=== PATIENT | male | born 1975 | race Asian ===

== ENCOUNTER 2024-09-14 12:05 | Outpatient (REF) | payer OTHER, SELFPAY ==
[2024-09-14 13:46] LABS: MANUAL DIFF FLAG NO
[2024-09-14 14:16] LABS: Hematocrit 47.5 % (42.0-52.0); Hemoglobin 15.9 g/dl (14.0-18.0); Imm Gran Abs Auto 0.01 X10*3/uL (0.00-0.03); Imm Gran Pct Auto 0.2 % (0.0-0.4); Lymphocytes Absolute Auto 2.0 X10*3/uL (1.2-4.9); Mean Corpuscular HGB Conc 33.5 g/dl (31.0-36.0); Mean Corpuscular Hemoglobin 28.7 pg (27.0-33.0); Mean Corpuscular Volume 85.7 fL (80.0-98.0); NRBC Abs Auto 0.000 X10*3/uL (0.0-0.012); NRBC Pct Auto 0.0 /100WBC (0.0-0.2); Platelet Count 237 X10*3/uL (160-400); Red Blood Count 5.54 X10*6/uL (4.60-5.80); White Blood Count 4.6 X10*3/uL (4.8-10.8)
[2024-09-14 14:53] LABS: Alanine Aminotransferase 53 U/L (0-40); Albumin Level 4.8 g/dL (3.5-5.0); Alkaline Phosphatase 94 U/L (39-117); Anion Gap 13 (12-20); Aspartate Amino Transferase 28 U/L (5-37); Blood Urea Nitrogen 10 mg/dL (9-16); Calcium 9.0 mg/dL (8.4-10.2); Carbon Dioxide 27 mmol/L (22-29); Chloride 106 mmol/L (96-108); Estimated Glomerular Filt Rate > 60; Lipase 22 U/L (8-78); Potassium 4.2 mmol/L (3.3-5.1); Sodium 142 mmol/L (135-145); Total Protein 7.7 g/dL (6.5-8.0)
[2024-09-14 14:58] LABS: Ferritin 62 ng/mL (20-250)
== END 2024-09-14 12:06 | disposition home or self-care (01) ==
LOC: HO.LAB 12:05
PROVIDERS: PCP Hospitalist; Visit Provider Internal Medicine Gastroenterology
DX: R10.13 Epigastric pain (principal); K75.81 Nonalcoholic steatohepatitis (NASH)
CPT/HCPCS: 36415; 80053; 82728; 83013; 83690; 84443; 85025; 86140; 99202

== ENCOUNTER 2024-09-14 12:05 | Outpatient (AMB) | payer OTHER, SELFPAY ==
--- NOTE | 2024-09-14 12:08 | A.OFFVIS_ITS ---
Vital Signs 09/14/24 12:30 Height 5 ft 8 in Weight 190 lb BMI 28.9 BP 101/59 L Blood Pressure Location Lt brachial Position Sitting Pulse 63 Pulse Oximetry (%) 98 Oxygen Delivery Method Room Air Intake Visit Reasons: C-scope Ok per Dr. Gibson Intake Note: Patient new consult for C-scope Patient cc: abdominal pain/bloating, gasses, GERD with burning sensation, denies any other GI issues. Day Habilitation Specialist Required: No Accompanied by: Spouse Allergies No Known Allergies Allergy (Verified 09/14/24 12:08) HPI HPI C-scope Ok per Dr. Gibson: Details: HPI 48 yr old m here for assessment He noted long standing hx of epigastric pain and discomfort, worse last few months pain can be 7/10 comes and goes he has bloating and gas he has satiety denies constipation and diarrhea he had colonoscopy 5 months ago and was normal ROS: Constitutional : No Weight loss, No Fever, No Chills ENT/Mouth : No sore throat, No Rhinorrhea Eyes: No Swelling, No Redness Cardiovascular : No Chest Pain, No SOB, No Edema Respiratory : No Cough, No Sputum, No Wheezing Gastrointestinal : see HPI Genitourinary : NO Dysuria, No Urinary Frequency, No Hematuria, No Urgency Musculoskeletal : + joint pain, No Myalgias, No Joint Swelling Skin : No Skin Lesions, No rash Neuro : No Weakness, No Numbness, No Dizziness, No Headache Psych : No Anxiety/Panic, No Depression Heme/Lymph: No Bruising, No Lymphadenopathy Endocrine : No Polyuria, No Polydipsia All other systems reviewed and are negative. Medical History none Surgical History colonoscopy Family History no Fh of cancer Social History ex hooka user, no alcohol, EXAM: GENERAL: The patient is well developed and nontoxic. VITAL SIGNS:see workflow HEENT: Nonicteric sclerae, PERRLA, EOMI. Oropharynx clear. Moist mucous membranes. Conjunctivae appear well perfused. No thyroid mass. CHEST: Chest wall is nontender. HEART: Regular rate and rhythm without murmurs. LUNGS: Clear to auscultation bilaterally. ABDOMEN: Soft, positive bowel sounds, tender epigastrium, no organomegaly.no flank tenderness SKIN: No rash, no excessive bruising, petechiae, or purpura. NEUROLOGIC: Cranial nerves II-XII intact without motor/sensory deficit. Psych: normal affect A/P: 1/ Epigastric pain satiety, from [place] PLAN: 1/ H pylori breath 2/ labs 3/ EGD [facility] Social History (Updated 09/14/24 @ 12:25 by Renetta Lee) Household Members: Family Alcohol intake: never Patient Tobacco Use Status: Never used Tobacco Use of substances other than those prescribed or required for medical reasons: No Physical Exam Vital Signs: Last Vital Signs Pulse 63 09/14/24 12:30 BP 101/59 L 09/14/24 12:30 Pulse Ox 98 09/14/24 12:30 Oxygen Delivery Method Room Air 09/14/24 12:30 BMI result Body Mass Index 28.9 Assessment & Plan Assessment & Plan (1) Epigastric abdominal pain: Code(s): R10.13 - Epigastric pain Category: Medical Plan: as above Orders: Orders Complete Blood Count Auto Diff Today R10.13 - Epigastric pain Comprehensive Met. Panel Today K75.81 - Nonalcoholic steatohepatitis (HDZ), R10.13 - Epigastric pain Lipase Today R10.13 - Epigastric pain TSH reflex Free T4 Today R10.13 - Epigastric pain Ferritin Today R10.13 - Epigastric pain C Reactive Protein Today R10.13 - Epigastric pain H Pylori Breath Test Today Coding Level of Care Code New Pt Level 4 (89517) Diagnoses Epigastric abdominal pain R10.13
[2024-09-14 12:30] VITALS: BP 101/59; PULSE 63; O2SAT 98; BMI 28.9
--- OUTSIDE RECORDS SUMMARY | 2024-09-14 13:00 | XMS_ITS | Clinical Summary ---
Author Organization [facility] Address [address] [place] [address] Phone Care Team Providers Care Tread Booker Name Role Phone Magnus Velásquez MD Primary Care Provider Allergies No known active allergies Social History Tobacco Use Types Packs/Day Years Used Date Smoking Tobacco: Never Assessed Sex and Gender Information Value Date Recorded Sex Assigned at Male 06/02/2024 10:14 PM EDT Legal Sex Male 1:32 PM EDT Gender Identity Male 06/02/2024 10:14 PM EDT Sexual Orientation Straight 06/02/2024 10 :14 PM EDT Last Filed Vital Signs Vital Sign Reading Time Taken Comments Blood Pressure 103/56 06/03/2024 12:15 AM EDT Pulse 73 06/03/2024 12:15 AM EDT Temperature 36.6 C (97.9 F) 06/03/2024 12:15 AM EDT Respiratory Rate 18 06/03/2024 12:15 AM EDT Oxygen Saturation 95% 06/03/2024 12:15 AM EDT Inhaled Oxygen Concentration - - Weight 81.6 kg (180 lb) 06/02/2024 8:05 PM EDT Height 172.7 cm (5' 8 ) 06/02/2024 8:05 PM EDT Body Mass Index 27.37 06/02/2024 8:05 PM EDT Plan of Treatment Health Maintenance Due Date Last Done Comments DTaP,Tdap,and Td Vaccines (1 - Tdap) 1992 Hepatitis B Vaccines (1 of 3 - 19+ 3-dose series) 1992 Cholesterol Screening (Lipid Panel) 09/27/2023 Colorectal Cancer Screening: Colonoscopy 09/27/2023 HIV Screening 09/27/2023 Hepatitis C Screening 09/27/2023 Social Influencers of Health Screening 09/27/2023 COVID-19 Vaccine (3 - 2023-2 5 season) 2023 11/17/2020, 10/27/2020 Pneumococcal Vaccine: 50+ Years (1 of 1 - PCV) 12/03/2023 Zoster Vaccines (1 of 2) 12/03/2023 Depression Screening 02/26/2024 Influenza Vaccine (#1) 2024 HIB Vaccines Aged Out No longer eligi ble based on patient's age to complete this topic HPV Vaccines Aged Out No longer eligi ble based on patient's age to complete this topic Hepatitis A Vaccines Aged Out No long er eligible based on patient's age to complete this topic IPV Vaccines Aged Out No longer eligi ble based on patient's age to complete this topic MMR Vaccines Aged Out No longer eligi ble based on patient's age to complete this topic Meningococcal ACWY Vaccine Aged Out N o longer eligible based on patient's age to complete this topic Meningococcal B Vaccine Aged Out No l onger eligible based on patient's age to complete this topic RSV Immunization Patients Under 20 months Aged Out No longer eligible b ased on patient's age to complete this topic Varicella Vaccines Aged Out No longer eligible based on patient's age to complete this topic Insurance [facility] PLAN Care Teams Tread Booker Relationship Specialty Start Date End Date Magnus Velásquez MD [address] [place] [address] PCP - General Internal Medicine 06/02/24
--- OUTSIDE RECORDS SUMMARY | 2024-09-14 13:01 | XMS_ITS | Clinical Summary ---
Author Organization [facility] Address [address] [place] [address] Care Team Providers Care Sheet Rock Applier Name Role Phone Isabel Martin Primary Care Provider [phone] Source Comments PLEASE NOTE, if this patient is a minor, it may be UNLAWFUL to discuss sensitive information that is contained in these records (such as FAMILY PLANNING, MENTAL HEALTH or SUBSTANCE ABUSE) with the minor patient's parent or other person without the patient's specific authorization.[facility] Social History Tobacco Use Types Packs/Day Years Used Date Smoking Tobacco: Never Assessed Social Connections Answer Date Recorded Social Connections and Isolation 0 10/18/2018 Financial Resource Strain Answer Date R ecorded Financial Resource Strain 0 2018 Stress Answer Date Recorded Stress 0 10/18/2018 Physical Activity Answer Date Recorded Physical Activity 0 10/18/2018 Food Insecurity Answer Date Recorded Food 0 10/18/2018 Transportation Needs Answer Date Record ed Transportation 0 10/18/2018 Housing Stability Answer Date Recorded Housing 0 10/18/2018 Safety and Environment Answer Date Gurinder rded Safety 0 10/18/2018 Utilities Answer Date Recorded Utilities 0 10/18/2018 Employment Answer Date Recorded Employment 0 10/18/2018 Sex and Gender Information Value Date Recorded Sex Assigned at Not on file Legal Sex Male 11:36 AM PDT Gender Identity Not on file Sexual Orientation Not on file Last Filed Vital Signs Vital Sign Reading Time Taken Comments Blood Pressure 116/58 11/17/2013 2:32 PM EDT Pulse 68 11/17/2013 2:32 PM EDT Temperature 37 C (98.6 F) 11/17/2013 2:32 PM EDT Respiratory Rate 20 11/17/2013 2:32 PM EDT Oxygen Saturation - - Inhaled Oxygen Concentration - - Weight 76.2 kg (168 lb) 11/17/2013 2:32 PM EDT Height 170.2 cm (5' 7 ) 11/17/2013 2:32 PM EDT Body Mass Index 26.31 11/17/2013 2:32 PM EDT Plan of Treatment Not on file Insurance [facility] [place] [address] [address] [place] [address] HEALTH PLAN Member Subscriber Plan / Payer (Ef fective 2013-Present) Name:Catarino Iqbal Relation to Subscriber:Self Name:Catarino Iqbal Payer ID:[id number] Group ID:[id number] Type:Medicaid Address: [address] [address] [place] [address] Care Teams Sheet Rock Applier Relationship Specialty Start Date End Date Isabel Martin PA [address] [place] [address] PCP - General Internal Medicine 11/17/13
--- OUTSIDE RECORDS SUMMARY | 2024-09-14 13:01 | XMS_ITS | Patient Health Record ---
Author Organization [facility] Address [address] [place] [address] Care Team Providers Care Top Stop Attacher Name Role Phone ELLIE PONCE Primary Care Provider Leah Rowland Unavailable [phone] Allergies No Known Allergies Results Component Value Reference Range Notes PSA (Serial Monitor)-[id number] Reviewed date:07/21/2024 11:40:51 AM Interpretation: Performing Lab:[facility], [address] [facility], Phone - [phone], Director - MDJodry Notes/Report: Prostate Specific Ag 2.0 0.0-4.0 ng/mL Saad ECLIA methodology. . According to the [employer], Serum PSA should decrease and remain at undetectable levels after radical prostatectomy. The AUA defines biochemical recurrence as an initial PSA value 0.2 ng/mL or greater followed by a subsequent confirmatory PSA value 0.2 ng/mL or greater. Values obtained with different assay methods or kits cannot be used interchangeably. Results cannot be interpreted as absolute evidence of the presence or absence of malignant disease. Comp. Metabolic Panel ([id number] Reviewed date:07/21/2024 11:41:53 AM Interpretation: Performing Lab:[facility], [address], [place], Phone - [phone], Director - MDJodry Notes/Report: Glucose 87 70-99 mg/dL BUN 11 6-24 mg/dL Creatinine 0.89 0.76-1.27 mg/dL eGFR 104 >59 mL/min/1.73 BUN/Creatinine Ratio 12 9-20 Sodium 140 134-144 mmol/L Potassium 4.6 3.5-5.2 mmol/L Chloride 102 96-106 mmol/L Carbon Dioxide, Total 21 20-29 mmol/L Calcium 9.3 8.7-10.2 mg/dL Protein, Total 7.1 6.0-8.5 g/dL Albumin 4.4 4.1-5.1 g/dL Globulin, Total 2.7 1.5-4.5 g/dL Bilirubin, Total 0.4 0.0-1.2 mg/dL Alkaline Phosphatase 107 44-121 IU/L AST (SGOT) 29 0-40 IU/L ALT (SGPT) 50 0-44 IU/L Lipid Panel-[id number] Reviewed date:07/21/2024 11:42:18 AM Interpretation: Performing Lab:[facility] [place], [address] [place] [address], Phone - [phone], Director - MDJodry Notes/Report: Cholesterol, Total 245 100-199 mg/dL Triglycerides 219 0-149 mg/dL HDL Cholesterol 37 >39 mg/dL VLDL Cholesterol Serjio 41 5-40 mg/dL LDL Chol Calc (NIH) 167 0-99 mg/dL TSH+Free [id number] Reviewed date:07/21/2024 11:42:34 AM Interpretation: Performing Lab:[facility] [place], [address] [place] [address], Phone - [phone], Director - MDJodry Notes/Report: TSH 2.810 0.450-4.500 uIU/mL T4,Free(Direct) 1.01 0.82-1.77 ng/dL Vitamin D, 54-[id number] Reviewed date:07/21/2024 11:43:00 AM Interpretation: Performing Lab:[facility] [place], [address] [place] [address], Phone - [phone], Director - MDJodry Notes/Report: Vitamin D, 25-Hydroxy 14.4 30.0-100.0 ng/mL intakes for calcium and D. [place]: The National Academies Press. 2. Alexandrea MF, Hemant NC, Gilberto CUELLAR, et al. Evaluation, treatment, and prevention of vitamin D deficiency: an Endocrine Society clinical practice guideline. JCEM. 2010; 96(7):1911-30. Vitamin D deficiency has been defined by the [place] [employer] and an Endocrine Society practice guideline as a level of serum 25-OH vitamin D less than 20 ng/mL (1,2). The Endocrine Society went on to further define vitamin D insufficiency as a level between 21 and 29 ng/mL (2). 1. IOM ([place] of [employer]). 2010. Dietary reference CBC with Diff, Platelet, NLR -[id number] Reviewed date:07/21/2024 11:41:35 AM Interpretation: Performing Lab:[facility] [place], [address], [place], Phone - [phone], Director - Sameer Notes/Report: WBC 5.0 3.4-10.8 x10E3/uL RBC 5.68 4.14-5.80 x10E6/uL Hemoglobin 16.5 13.0-17.7 g/dL Hematocrit 49.2 37.5-51.0 % MCV 87 79-97 fL MCH 29.0 26.6-33.0 pg MCHC 33.5 31.5-35.7 g/dL RDW 12.7 11.6-15.4 % Platelets 276 150-450 x10E3/uL Neutrophils 46 Not Estab. % Lymphs 43 Not Estab. % Monocytes 7 Not Estab. % Eos 3 Not Estab. % Basos 1 Not Estab. % Neutrophils (Absolute) 2.3 1.4-7.0 x10E3/uL Lymphs (Absolute) 2.1 0.7-3.1 x10E3/uL Neut/Lymph Ratio 1.1 0.0-2.9 ratio Published COVID-19 studies suggest: Low likelihood of severe COVID-19 disease progression 0.0-2.9 High likelihood of severe COVID-19 disease progression >4.9 Monocytes(Absolute) 0.4 0.1-0.9 x10E3/uL Eos (Absolute) 0.2 0.0-0.4 x10E3/uL Baso (Absolute) 0.1 0.0-0.2 x10E3/uL Immature Granulocytes 0 Not Estab. % Immature Grans (Abs) 0.0 0.0-0.1 x10E3/uL Reason For Referral Reason C-scope- Mel. Dr Lloyd Hawthorne Please evaluate and treat Diagnosis 1 Encounter for screen ing for malignant neoplasm of colon (Z12.11) Referral Organization [facility] Referring Provider First Name Leah Referring Provider Last Name Janett Referred Provider Specialty Gastroentero logy General Notes Please call the siri ent to schedule the appointment, [place] ([facility]) Gastroenterology - [phone] Marcy 06/17/2024 03:59:00 PM > Referral Priority Routine Reason Currently on prednis one taper, no previous dx. Dr. Arthur Hawthorne- Mel Please evaluate and treat Diagnosis 1 Panniculitis, unspec ified (M79.3) Referral Organization [facility] Referring Provider First Name Leah Referring Provider Last Name Janett Referred Provider Specialty Gastroentero logy General Notes Please call the siri ent to schedule the appointment, [place] ([facility]) Gastroenterology - [phone] Marcy 06/17/2024 03:58:01 PM > Referral Priority Routine Reason Evaluation and manag ement White small scattered patches localized in the buccal mucosa BL needs Biopsy- Mel Diagnosis 1 Granulomatous disord er of the skin and subcutaneous tissue, unspecified (L92.9) Referral Organization [facility] Referring Provider First Name Leah Referring Provider Last Name Janett Referred Provider Specialty Oral Surgery General Notes Referral sent to [facility] ([address] [place] [address], [phone]) - Office will call patient for scheduling. 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, please contact patient for scheduling.Gail Rashida 07/28/2024 04:58:26 PM > Referral Priority Routine Medications Medication SIG (Take, Route, Frequency, Duration) Notes Start Date End Date Status predniSONE 10 MG 1 tablet with food o r milk Orally Once a day Active Vitamin D (Ergocalciferol) 1.25 MG (28964 UT) 1 capsule Orally once a week; Duration: 90 days 07/14/2024 Active Ezetimibe 10 MG 1 tablet Orally Once a day; Duration: 30 days 07/14/2024 Active Immunizations Vaccine Route Administration Date Status Comme nts COVID Unknown 10/27/2020 Administered 1st pfizer COVID Unknown 11/17/2020 Administered 2nd pfizer Social History Tobacco Use: Social History Observation Description Date Details (start date - stop date) Unknown Tobacco Use/Smoking Question Answer Notes Are you a Uses tobacco in other forms Additional Findings: Tobacco User User of moist powdered tobacco Alcohol Screen (Audit-C) Question Answer Notes Did you have a drink containing alcohol in the p ast year? 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 Problem Vitamin D deficiency (22643772) Vitamin D deficiency (E55.9) Active confirmed Vital Signs Heart Rate 72 /min 06/16/2024 Temperature 97.6 degrees Fahrenheit 06/16/2024 Oximetry 97 % 06/16/2024 Blood pressure diastolic 70 mm Hg 06/16/2024 Height 5'8'' in 06/16/2024 Blood pressure systolic 112 mm Hg 06/16/2024 Weight 189.2 lbs 06/16/2024 BMI 28.76 kg/m2 06/16/2024 Encounters Encounter Location Date Provider Diagnosis [address] [place] [address] 01/01/[address] [place] [address] 06/16/2024 Leah Rowland Encounter for genera l adult medical examination without abnormal findings Z00.00 ; Encounter for screening for cardiovascular disorders Z13.6 ; Panniculitis, unspecified M79.3 ; Granulomatous disorder of the skin and subcutaneous tissue, unspecified L92.9 ; Encounter for screening for malignant neoplasm of prostate Z12.5 and Encounter for screening for malignant neoplasm of colon Z12.[address] [place] [address] 06/17/[address] [place] [address] 06/22/[address] [place] [address] 07/14/2024 Leah Rowland Hyperlipidemia, mixe d E78.[address] [place] [address] 07/14/2024 Leah [facility] Vitamin D deficiency E55.[address] [place] [address] 07/23/[address] [place] [address] 07/28/[address] [place] [address] 07/29/[address] [place] [address] 07/30/[address] [place] [address] 07/30/2024 ELLIE RAINEY Assessments Encounter Date Diagnosis (ICD Code) Assessment Notes Treatment Notes Treatment Clinical Notes Section Notes 06/16/2024 Encounter for general adult medical examination without abnormal findings (ICD-10 - Z00.00) Mr. Iqbal is a 47 year old gentleman with no significant past medical history here for annual physical. Plan is as follows: Screening for cardiovascular disorder. 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 Refer patient to GI specialist Unspecified lesions in the buccal mucosa bilateral. He does have history of smoking hookah. Referred patient to oral surgery for biopsy to rule out any abnormalities Eye screening. He sees his casting coordinator regularly. Dental screening. He sees dentist regularly. Colon cancer screening. Referred to GI for colonoscopy Screening for prostate cancer. Order PSA. Immunizations. He is up-to-date on his COVID vaccinations. MOLST form and HCP provided Screening blood work before next appointment. General concerns have been discussed I have rendered the services for this patient under direct supervision of Dr. Ponce, who did not see the patient but was available upon request 06/16/2024 Encounter for screening for cardiovascular disorders (ICD-10 - Z13.6) Mr. Iqbal is a 47 year old gentleman with no significant past medical history here for annual physical. Plan is as follows: Screening for cardiovascular disorder. 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 Refer patient to GI specialist Unspecified lesions in the buccal mucosa bilateral. He does have history of smoking hookah. Referred patient to oral surgery for biopsy to rule out any abnormalities Eye screening. He sees his casting coordinator regularly. Dental screening. He sees dentist regularly. Colon cancer screening. Referred to GI for colonoscopy Screening for prostate cancer. Order PSA. Immunizations. He is up-to-date on his COVID vaccinations. MOLST form and HCP provided Screening blood work before next appointment. General concerns have been discussed I have rendered the services for this patient under direct supervision of Dr. Ponce, who did not see the patient but was available upon request 07/14/2024 Hyperlipidemia, mixed (ICD-10 - E78.2) 07/14/2024 Vitamin D deficiency (ICD-10 - E55.9) 06/16/2024 Panniculitis, unspecified (ICD-10 - M79.3) Mr. Iqbal is a 47 year old gentleman with no significant past medical history here for annual physical. Plan is as follows: Screening for cardiovascular disorder. 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 Refer patient to GI specialist Unspecified lesions in the buccal mucosa bilateral. He does have history of smoking hookah. Referred patient to oral surgery for biopsy to rule out any abnormalities Eye screening. He sees his casting coordinator regularly. Dental screening. He sees dentist regularly. Colon cancer screening. Referred to GI for colonoscopy Screening for prostate cancer. Order PSA. Immunizations. He is up-to-date on his COVID vaccinations. MOLST form and HCP provided Screening blood work before next appointment. General concerns have been discussed I have rendered the services for this patient under direct supervision of Dr. Ponce, who did not see the patient but was available upon request 06/16/2024 Granulomatous disorder of the skin and subcutaneous tissue, unspecified (ICD-10 - L92.9) Mr. Iqbal is a 47 year old gentleman with no significant past medical history here for annual physical. Plan is as follows: Screening for cardiovascular disorder. 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 Refer patient to GI specialist Unspecified lesions in the buccal mucosa bilateral. He does have history of smoking hookah. Referred patient to oral surgery for biopsy to rule out any abnormalities Eye screening. He sees his casting coordinator regularly. Dental screening. He sees dentist regularly. Colon cancer screening. Referred to GI for colonoscopy Screening for prostate cancer. Order PSA. Immunizations. He is up-to-date on his COVID vaccinations. MOLST form and HCP provided Screening blood work before next appointment. General concerns have been discussed I have rendered the services for this patient under direct supervision of Dr. Ponce, who did not see the patient but was available upon request 06/16/2024 Encounter for screening for malignant neoplasm of prostate (ICD-10 - Z12.5) Mr. Iqbal is a 47 year old gentleman with no significant past medical history here for annual physical. Plan is as follows: Screening for cardiovascular disorder. 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 Refer patient to GI specialist Unspecified lesions in the buccal mucosa bilateral. He does have history of smoking hookah. Referred patient to oral surgery for biopsy to rule out any abnormalities Eye screening. He sees his casting coordinator regularly. Dental screening. He sees dentist regularly. Colon cancer screening. Referred to GI for colonoscopy Screening for prostate cancer. Order PSA. Immunizations. He is up-to-date on his COVID vaccinations. MOLST form and HCP provided Screening blood work before next appointment. General concerns have been discussed I have rendered the services for this patient under direct supervision of Dr. Ponce, who did not see the patient but was available upon request 06/16/2024 Encounter for screening for malignant neoplasm of colon (ICD-10 - Z12.11) Mr. Iqbal is a 47 year old gentleman with no significant past medical history here for annual physical. Plan is as follows: Screening for cardiovascular disorder. 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 Refer patient to GI specialist Unspecified lesions in the buccal mucosa bilateral. He does have history of smoking hookah. Referred patient to oral surgery for biopsy to rule out any abnormalities Eye screening. He sees his casting coordinator regularly. Dental screening. He sees dentist regularly. Colon cancer screening. Referred to GI for colonoscopy Screening for prostate cancer. Order PSA. Immunizations. He is up-to-date on his COVID vaccinations. MOLST form and HCP provided Screening blood work before next appointment. General concerns have been discussed I have rendered the services for this patient under direct supervision of Dr. Ponce, who did not see the patient but was available upon request Plan Of Treatment Future Test Test Name Order Date Lipid Panel-[id number] 07/14/2024 Next Appt Details Provider Name:ELLIE PONCE , 06/22/2025 03:00:00 PM, [address] [place] [address], [phone], Insurance Providers Payer Name Payer Address Payer Phone Subscriber Number Group Number Insured Name Patient Relationship to Insured Coverage Start Date Coverage End Date [facility] Plan I [address] [address] [place] [address] [id number] SHERMAN IQBAL Self - patient is the insured Medical (General) History Medical History History ICD Code Mesenteric panniculitis
--- OUTSIDE RECORDS SUMMARY | 2024-09-14 13:01 | XMS_ITS | Data Portability ---
Author Organization [facility], [address] Address [address] [place] [address] Assessment No assessment recorded. Plan of Treatment Reminders Order Date Submit Date Provider Last Modified By Organization Details Last Modified Time Details Appointments None record ed. Lab None record ed. Referral None record ed. Procedures None record ed. Surgeries None record ed. Imaging None record ed. Medication Orders None record ed. Patient TargetsNo targets recorded. Patient InstructionsNo instructions recorded. Reason for Referral None Reported. Procedures Surgical History Date Name Laterality Status Provider Name and Address Organization Details Recorded Time OC-UDS Send Out Template DOT completed [facility] 05/09/2022 13:26:32 Imaging Results None recorded. Procedure Notes None recorded. Medical Equipment None Reported. Vitals None Recorded Social History None recorded. Functional Status None recorded. Mental Status None recorded. Family History Nothing Reported. Medical History No medical history recorded. Past Encounters Encounter ID Performer Location Encounter Start Date Encounter Closed Date Diagnosis/Indication Diagnosis SNOMED-CT Code Diagnosis ICD10 Code Diagnosis Note [id number] [facility] [address] [place] [phone] 04/25/2018 12:56:07 04/25/2018 13:28:20 [id number] [place] [address] 03/13/2021 08:59:45 03/13/2021 10:58:39 [id number] Radha Pratt MD [facility] [address] [place] [phone] 05/09/2022 12:29:23 05/09/2022 13:37:54 History and physical examination, occupation [id number] Z02.1 Health Concerns Section Related Observation LastModified by Organization Detai ls LastModified Time None Recorded Concern Status LastModified by Organization Details LastModified Time None Recorded Advance Directives Directive None Recorded Payers Insurance Date Sequence Insurance Name Policy Number Policy Guerrero Covered Member ID Guerrero Member ID Guarantor Name 05/09/2022 OC-ESCREEN Catarino Iqbal [id number] Catarino Iqbal 05/09/2022 1 [facility] [employer] - HEALTH NET PLAN (MEDICAID HMO) [id number] Catarino Iqbal [id number] Catarino Iqbal
== END 2024-09-14 13:11 | disposition home or self-care (01) ==
LOC: HO.HGI 12:06
PROVIDERS: PCP Hospitalist; Visit Provider Internal Medicine Gastroenterology
DX: R10.13 Epigastric pain (principal)
CPT/HCPCS: 99204

== ENCOUNTER 2024-09-16 12:02 | Day surgery (SDC) | payer OTHER, SELFPAY ==
[2024-09-16 12:32] VITALS: BP 123/77; PULSE 85; RESP 12; TEMP 36.9; O2SAT 95; BMI 28.8
[2024-09-16] MEDS: Lactated Ringers 1,000 ML 100 ML IVCONT (12:35)
--- NOTE | 2024-09-16 12:51 | HO.ANESPROP2 ---
FORM[facility]LY [facility] Active Problems Active Problems: All Active Problems Epigastric abdominal pain (Acute) Past Medical History Medical History (Updated 09/15/24 @ 14:17 by Jayla Sinha, RN) Elevated cholesterol Family History Family history of problems with anesthesia: No Surgical History Surgical History (Updated 09/15/24 @ 14:15 by Jayla Sinha RN) Hx of colonoscopy History of Problems with Anesthesia: No Social History Social History (Updated 09/14/24 @ 12:25 by Renetta Lee) Household Members: Family Are you a primary clinical manager home care to a significant other at home: No Do you presently have visiting nurse or other home services: No Alcohol intake: never Patient Tobacco Use Status: Former Tobacco user Use of substances other than those prescribed or required for medical reasons: No Have you been hit, kicked, punched, or otherwise hurt by someone within the past year? If so, by whom?: No Are you DNR?: No Advance Directives: No Advance Directives Information Provided: Yes Poor oral hygiene: Yes Meds Allergies Allergy/AdvReac Type Severity Reaction Status Date / Time No Known Allergies Allergy Verified 09/14/24 12:08 Active Medications: Current Medications Lactated Ringer's (Lr) 1,000 mls @ 100 mls/hr IVCONT .Q10H BERRY Last Admin: 09/16/24 12:35 Dose: 100 mls/hr Naloxone HCl (Naloxone Hcl 0.4 Mg/Ml Vial) 0.04 mg IVPUSH Q5M PRN PRN Reason: Excessive sedation or RR < 8 Home Medications ?Medication ?Instructions ?Recorded ?Confirmed ?Last Taken ?Type ergocalciferol (vitamin D2) 1,250 1,250 mcg PO QWEEK 09/14/24 Unknown History mcg (50,000 unit) capsule ezetimibe 10 mg tablet 10 mg PO DAILY 09/14/24 Unknown History Exam Height,Weight and Vital Signs: Height 5 ft 8 in Weight 86 kg Last Vital Signs Temp 98.5 F 09/16/24 12:32 Pulse 85 09/16/24 12:32 Resp 12 09/16/24 12:32 BP 123/77 09/16/24 12:32 Pulse Ox 95 09/16/24 12:32 O2 Del Method Room Air 09/16/24 12:32 Airway Mallampati Class: III TM Dist: >3cm Neck ROM: Full Heart: rrr Lungs: cta Assessment and Plan Assessment Anesthesia Assessment: Anesthesia Plan Discussed and Chart Reviewed Final Anesthetic Review Family History of Problems with Anesthesia: No History of Problems with Anesthesia: No NPO: Yes ASA Class: II Final Preanesthetic Review: No Changes in Pt Med Stat, Meds/Allgs Chart Reviewed and Consent Obtained/Reviewed Patient Risk: Low Procedure Risk: Intermediate Anesthetic Plan Anesthetic Plan: MAC: Disposition: Standard PACU
--- NOTE | 2024-09-16 13:16 | P.HPSUR_ITS ---
Pre-Procedural Eval Section A - 24 Hr Update-Section A only Date of Service: 09/16/24 Section B - Complete if H&P > 30 days Chief Complaint: Epigastric pain Relevant Family History (Specify if Yes): No Relevant Social History: None Present Medications: see Short Stay Collaborative assessment Medical History: Significant History (high chol) History of Previous Operations: Relevant previous surgery/procedure and date(s) (colonsocopy) Allergies: Allergies Allergy/AdvReac Type Severity Reaction Status Date / Time No Known Allergies Allergy Verified 09/14/24 12:08 Review of Systems Sugical H&P ROS: Negative: Constitution, Cardiovascular, Respiratory, Neuro logical, Psychiatric, Hem-Onc, Allergic/Immunologic, Gastrointestinal, Genitourinary, Musculoskeletal, Integumentary, Endocrine and Eyes/Ears/Nose/Throat Exam Surgical H&P Exam: Normal: HEENT, Normal: Heart, Normal: Lungs, Normal: Extremities, Normal: Abdomen, Normal: Skin and Normal: Neurological Plan Diagnosis/Plan: Unchanged I have reviewed the history and physical and performed a pertinent physical examination on my patient. No changes have occurred unless specified. Time Spent With Patient Time: Total time managing care of this patient today ____ minutes.
--- NOTE | 2024-09-16 13:37 | W.PM.OPN ---
Operative Note Operative Note Date of Service: 09/16/24 Narrative: Procedure Description: EGD Indication: epigastric pain Anesthesia: MAC FLEXIBLE TRANSORAL UPPER GASTROINTESTINAL ENDOSCOPY UPPER ENDOSCOPY Consent: Indications for the procedure and potential complications of bleeding, perforation, reaction to medications and missed diagnosis were discussed with the patient and informed consent was obtained. Instrument: Olympus GIF H 190 J mid size upper endoscope Monitoring: Vital signs and clinical assessment, continuous EKG monitoring, Pulse oximetry, Carbon Dioxide monitoring and blood pressure monitoring were done throughout the procedure. Procedure: The patient was placed in the left lateral decubitis position and pre-procedure medications were administered and a bite block was placed. The endoscope was inserted into the mouth and advanced under direct vision to the third part of duodenum. A careful inspection was made as the upper endoscope was withdrawn including a retroflexed examination of the proximal stomach; Findings and interventions are described below. Findings: Larynx:normal Esophagus: GE junction at 40 cm, diaphragm hiatus at 40 cm, irregular Z line, possible barretts, bx taken Stomach: patchy gastritis . Biopsies were obtained. Grade 2 flap valve on retroflexed examination of the cardia. Duodenum: moderate bulbar duodenitis Intervention: Biopsies as noted above, Impression/Findings: gastritis duodenitis possible barretts PLAN: await bx - if h pylori pos then treat GERD precautions
[2024-09-16 13:43] VITALS: BP 98/61; PULSE 89; RESP 16; TEMP 36.3; O2SAT 95
[2024-09-16 13:58] VITALS: BP 113/77; PULSE 69; RESP 16; TEMP 37.1; O2SAT 97
== END 2024-09-16 15:09 | disposition home or self-care (01) ==
PROVIDERS: PCP Hospitalist; Visit Provider Internal Medicine Gastroenterology
PROC: 0DJ08ZZ Inspection of Upper Intestinal Tract, Via Natural or Artificial Opening Endoscopic (ICD-10-PCS; CPT 43235; principal; 2024-09-16 14:00)
DX: R10.13 Epigastric pain (principal); R68.81 Early satiety; K29.80 Duodenitis without bleeding; K29.50 Unspecified chronic gastritis without bleeding; B96.81 Helicobacter pylori [H. pylori] as the cause of diseases classified elsewhere; K22.89 Other specified disease of esophagus; K75.81 Nonalcoholic steatohepatitis (NASH); K44.9 Diaphragmatic hernia without obstruction or gangrene; K21.9 Gastro-esophageal reflux disease without esophagitis
CPT/HCPCS: 43239; 88305; 88313; 88342; J2003; J2704

== ENCOUNTER → 2024-09-16 12:02 | Outpatient (BNV) | payer OTHER, SELFPAY | PROVIDERS: PCP Hospitalist; Visit Provider Internal Medicine Gastroenterology | DX: R10.13 Epigastric pain (principal); K29.70 Gastritis, unspecified, without bleeding; K29.80 Duodenitis without bleeding | CPT/HCPCS: 43239 ==

== ENCOUNTER 2024-11-06 15:12 | Outpatient (AMB) | payer OTHER, SELFPAY ==
--- NOTE | 2024-11-06 15:44 | AM.OFFVISNUR ---
Intake Visit Reasons: h pylori Intake Note: Pt presents for H Pylori BT. Protocols reviewed with pt and confirmed to be followed. Pt advised of instructions for the test and began testing at 1550. Testing was concluded at 1605. No questions or additional concerns per pt at the end of testing. Advised pt that we will contact them with results when they are obtained. Feed Mixer Required: No Accompanied by: Self / Same As Patient Allergies No Known Allergies Allergy (Verified 09/14/24 12:08) Assessment & Plan Assessment & Plan (1) Epigastric abdominal pain: Code(s): R10.13 - Epigastric pain Category: Medical Coding Level of Care Code Established Pt Procedure Only Patient Type Established Diagnoses Epigastric abdominal pain R10.13
--- OUTSIDE RECORDS SUMMARY | 2024-11-06 17:37 | XMS_ITS | Patient Health Record ---
Author Organization [facility] Address [address] [place] [address] Care Team Providers Care Consulting Psychiatrist Name Role Phone ELLIE PONCE Primary Care Provider Leah Rowland Unavailable [phone] Allergies No Known Allergies Results Component Value Reference Range Notes CBC with Diff, Platelet, NLR -[id number] Reviewed date:07/21/2024 11:41:35 AM Interpretation: Performing Lab:[facility], [address] [place] [address], [place], Phone - [phone], Director - Sameer Notes/Report: WBC 5.0 3.4-10.8 [...] % Immature Grans (Abs) 0.0 0.0-0.1 x10E3/uL Vitamin D, 46-Czratyp-[id number] Reviewed date:07/21/2024 11:43:00 AM Interpretation: Performing Lab:[facility] [place], [address] [place] [address], Phone - [phone], Director - MDJodry Notes/Report: Vitamin D, 25-Hydroxy 14.4 30.0-100.0 ng/mL intakes for calcium and D. [place]: The National Academies Press. 2. Alexandrea MF, Hemant GIFFORD, Gilberto CUELLAR, et al. Evaluation, treatment, and prevention of vitamin D deficiency: an Endocrine Society clinical practice guideline. JCEM. 2010; 96(7):1911-30. Vitamin D deficiency has been defined by the [place] of Medicine and an Endocrine Society practice guideline as a level of serum 25-OH vitamin D less than 20 ng/mL (1,2). The Endocrine Society went on to further define vitamin D insufficiency as a level between 21 and 29 ng/mL (2). 1. IOM ([place] of Medicine). 2010. Dietary reference TSH+Free [id number] Reviewed date:07/21/2024 11:42:34 AM Interpretation: Performing Lab:[facility] [place], [address] [place] [address], Phone - [phone], Director - Sirenay Notes/Report: TSH 2.810 0.450-4.500 uIU/mL T4,Free(Direct) 1.01 0.82-1.77 ng/dL Lipid Panel-[id number] Reviewed date:07/21/2024 11:42:18 AM Interpretation: Performing Lab:[facility] [place], [address] [place] [address], Phone - [phone], Director - Sirenay Notes/Report: Cholesterol, Total 245 100-199 mg/dL Triglycerides 219 0-149 mg/dL HDL Cholesterol 37 >39 mg/dL VLDL Cholesterol Serjio 41 5-40 mg/dL LDL Chol Calc ([facility]) 167 0-99 mg/dL Comp. Metabolic Panel (14)-3 Reviewed date:07/21/2024 11:41:53 AM Interpretation: Performing Lab:[facility], [address], [place], Phone - [phone], Director - Sameer Notes/Report: Glucose 87 70-99 mg/dL BUN 11 [...] 0-40 IU/L ALT (SGPT) 50 0-44 IU/L PSA (Serial Monitor)-[id number] Reviewed date:07/21/2024 11:40:51 AM Interpretation: Performing Lab:[facility], [address] [facility], [place], Phone - [phone], Director - Sameer Notes/Report: Prostate Specific Ag 2.0 0.0-4.0 ng/mL Saad ECLIA methodology. . According to the [place] [employer], Serum PSA should decrease and [...] the presence or absence of malignant disease. Reason For Referral Reason C-scope- Mel. Dr Lloyd Hawthorne Please evaluate and treat Diagnosis 1 Encounter for screen ing for malignant neoplasm of colon (Z12.11) Referral Organization [facility] Referring Provider First Name Leah Referring Provider Last Name Janett Referred Provider Specialty Gastroentero logy General Notes Please call the siri ent to schedule the appointment, [place] [place] - [phone] Marcy 06/17/2024 03:59:00 PM > Referral Priority Routine Reason Currently on prednis one taper, no previous dx. Dr. Arthur Hawthorne- Mel Please evaluate and treat Diagnosis 1 Panniculitis, unspec ified (M79.3) Referral Organization [facility] Referring Provider First Name Leah Referring Provider Last Name Janett Referred Provider Specialty Gastroentero logy General Notes Please call the siri ent to schedule the appointment, [place] [place] - [phone] Marcy 06/17/2024 03:58:01 PM > Referral Priority Routine Reason Evaluation and manag ement White small scattered patches localized in the buccal mucosa BL needs Biopsy- Mel Diagnosis 1 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) Referral Organization [facility] Referring Provider First Name Leah Referring Provider Last Name Janett Referred Provider Specialty Dental Care General Notes Referral was faxed t o [facility], please contact patient for scheduling.Gail Rashida 07/28/2024 04:58:26 PM > Referral Priority Routine Medications Medication SIG (Take, Route, Frequency, Duration) Notes Start Date End Date Status predniSONE 10 MG 1 tablet with food o r milk Orally Once a day Active Ezetimibe 10 MG 1 tablet Orally Once a day; Duration: 30 days 07/14/2024 Active Vitamin D (Ergocalciferol) 1.25 MG (47970 UT) TAKE 1 CAPSULE BY MOUTH ONCE A WEEK; Duration: 90 Active Immunizations Vaccine Route Administration Date Status [...] Problem Carcinoma in situ of buccal mucosa (57043232) 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 Problem Vitamin D deficiency (00071214) Vitamin D deficiency (E55.9) Active confirmed Vital Signs Heart Rate 72 /min 06/16/2024 Temperature 97.6 degrees Fahrenheit 06/16/2024 Blood pressure diastolic 70 mm Hg 06/16/2024 Oximetry 97 % 06/16/2024 Height 5'8'' in 06/16/2024 Blood pressure systolic 112 mm Hg 06/16/2024 Weight 189.2 lbs 06/16/2024 BMI 28.76 kg/m2 06/16/2024 Encounters Encounter Location Date Provider Diagnosis [address] [place] [address] 01/01/[address] [place] [address] 06/16/2024 Leah Rowland Encounter for genera l adult medical examination without abnormal findings Z00.00 ; Encounter for screening for cardiovascular disorders Z13.6 ; Panniculitis, unspecified M79.3 ; Granulomatous disorder of the skin and subcutaneous tissue, unspecified L92.9 ; Encounter for screening for malignant neoplasm of prostate Z12.5 and Encounter for screening for malignant neoplasm of colon Z12.[address] [place] [address] 06/17/[address] [place] [address] 06/22/[address] [place] [address] 07/14/2024 Leah Rowland Hyperlipidemia, mixe d E78.[address] [place] [address] 07/14/2024 Leah [facility] Vitamin D deficiency E55.[address] [place] [address] 07/23/[address] [place] [address] 07/28/2024 [facility] [address] [place] [address] 07/29/2024 [facility] [address] [place] [address] 07/30/[address] [place] [address] 07/30/2024 ELLIE KRIS Assessments Encounter Date Diagnosis (ICD Code) Assessment [...] any abnormalities Eye screening. He sees his professor of biological sciences regularly. Dental screening. He sees dentist regularly. [...] any abnormalities Eye screening. He sees his professor of biological sciences regularly. Dental screening. He sees dentist regularly. [...] patient but was available upon request 07/14/2024 Vitamin D deficiency (ICD-10 - E55.9) 07/14/2024 Hyperlipidemia, mixed (ICD-10 - E78.2) 06/16/2024 Panniculitis, unspecified (ICD-10 - M79.3) Mr. [...] any abnormalities Eye screening. He sees his professor of biological sciences regularly. Dental screening. He sees dentist regularly. [...] any abnormalities Eye screening. He sees his professor of biological sciences regularly. Dental screening. He sees dentist regularly. [...] any abnormalities Eye screening. He sees his professor of biological sciences regularly. Dental screening. He sees dentist regularly. [...] any abnormalities Eye screening. He sees his professor of biological sciences regularly. Dental screening. He sees dentist regularly. [...] Future Test Test Name Order Date Lipid Panel-[id number] 07/14/2024 Next Appt Details Provider Name:ELLIE PONCE , 06/22/2025 03:00:00 PM, [address] [place] [address], [place], [address], Insurance Providers Payer Name Payer Address Payer Phone Subscriber Number Group Number Insured Name Patient Relationship to Insured Coverage Start Date Coverage End Date [employer] [facility] [employer] I [address] [address] [place] [address] [phone] [id number] SHERMAN IQBAL Self - patient is the insured Medical (General) History Medical History History ICD Code Mesenteric panniculitis
--- OUTSIDE RECORDS SUMMARY | 2024-11-06 17:37 | XMS_ITS | Clinical Summary ---
Author Organization [facility] Address [address] [place] [address] Phone Care Team Providers Care Assessment Manager Name Role Phone Magnus Velásquez MD Primary Care Provider [phone] Allergies No known active allergies Social History [...] 09/27/2023 Social Influencers of Health Screening 09/27/2023 Pneumococcal Vaccine: 50+ Years (1 of 1 - PCV) 12/03/2023 Zoster Vaccines (1 of 2) 12/03/2023 Depression Screening 02/26/2024 COVID-19 Vaccine (3 - 2024-2 6 season) 2024 11/17/2020, 10/27/2020 Influenza Vaccine (#1) 2024 HIB Vaccines Aged [...] patient's age to complete this topic Insurance [facility] Care Teams Assessment Manager Relationship Specialty Start Date End Date Magnus Velásquez MD [address] [place] [address] PCP - General Internal Medicine 06/02/24
--- OUTSIDE RECORDS SUMMARY | 2024-11-06 17:37 | XMS_ITS | Clinical Summary ---
Author Organization [facility] Address [address] [place] [address] Care Team Providers Care Sales Office Manager Name Role Phone Isabel Martin Primary Care Provider [phone] Source Comments PLEASE NOTE, if this patient [...] Plan of Treatment Not on file Insurance [facility] [place] [address] [place] [address] HEALTH PLAN Member Subscriber Plan / Payer (Ef fective 2013-Present) Name:Catarino Iqbal Relation to Subscriber:Self Name:Catarino Iqbal Payer ID:[id number] Group ID:[id number] Type:Medicaid Address: [address] [address] [place] [address] Care Teams Sales Office Manager Relationship Specialty Start Date End Date Isabel Martin PA [address] [place] [address] PCP - General Internal Medicine 11/17/13
== END 2024-11-06 16:13 | disposition home or self-care (01) ==
LOC: HO.HGI 15:13
PROVIDERS: PCP Hospitalist; Visit Provider Internal Medicine Gastroenterology
DX: R10.13 Epigastric pain (principal)
CPT/HCPCS: 99499

== ENCOUNTER 2024-11-06 15:12 | Outpatient (REF) | payer OTHER, SELFPAY | END 2024-11-06 15:13 | disposition home or self-care (01) | LOC: HO.LNP 15:12 | PROVIDERS: PCP Hospitalist; Visit Provider Internal Medicine Gastroenterology | DX: R10.13 Epigastric pain (principal) | CPT/HCPCS: 83013 ==